=== PATIENT | female | born 1970 | race Caucasian/White ===

== ENCOUNTER 2018-10-01 08:35 | Outpatient (CLI) | payer OTHER ==
--- NOTE | 2018-10-01 12:09 | MMO ---
Bilateral MAMMO Bilat Screen [facility]DI. CLINICAL HISTORY: Patient is 48 years old and is seen for screening. The patient has the following family history of breast cancer: maternal grandmother, malignant (generic). The patient has no personal history of cancer. VIEWS: The views performed were: bilateral craniocaudal and bilateral mediolateral oblique. FILMS COMPARED: The present examination has been compared to prior imaging studies performed at [facility] on 08/12/2015, at [facility] on 10/24/2011, and at [facility] on 04/13/2010. This study has been interpreted with the assistance of computer-aided detection. MAMMOGRAM FINDINGS: There are scattered fibroglandular densities. There are stable benign appearing calcifications seen in the right breast. There are no suspicious masses, suspicious calcifications, or new areas of architectural distortion. IMPRESSION: THERE IS NO MAMMOGRAPHIC EVIDENCE OF MALIGNANCY. A ROUTINE FOLLOW-UP MAMMOGRAM IN 1 YEAR IS RECOMMENDED. ACR BI-RADS Category 2 - Benign finding MAMMOGRAPHY NOTE: 1. A negative mammogram report should not delay a biopsy if a dominant of clinically suspicious mass is present. 2. Approximately 10% to 15% of breast cancers are not detected by mammography. 3. Adenosis and dense breasts may obscure an underlying neoplasm.
== END 2018-10-01 08:36 | disposition home or self-care (01) ==
LOC: SCSMAMMO 08:35
PROVIDERS: ATTEND Family Medicine
DX: Z12.31 Encounter for screening mammogram for malignant neoplasm of breast (principal); Z80.3 Family history of malignant neoplasm of breast
CPT/HCPCS: 77067

== ENCOUNTER 2022-06-21 10:25 | Outpatient (CLI) | payer OTHER | END 2022-06-21 10:26 | disposition home or self-care (01) | LOC: SCSRAD 10:25 | PROVIDERS: ATTEND Family Medicine | DX: R05.9 Cough, unspecified (principal) | CPT/HCPCS: 71046 ==

== ENCOUNTER 2025-05-05 07:27 | Outpatient (CLI) | payer OTHER | END 2025-05-05 07:28 | disposition home or self-care (01) | LOC: SCSMRI 07:27 | PROVIDERS: ATTEND Family Medicine | DX: M25.512 Pain in left shoulder (principal); R60.0 Localized edema ==